=== PATIENT | male | born 1980 | race Caucasian/White ===

== ENCOUNTER 2024-01-23 10:59 | Emergency (ER) | payer MEDICAID ==
[~2024-01-23] VITALS: Ht 177.8 cm; Wt 117.0 kg
[2024-01-23] VITALS (8 sets, daily range): BP systolic 80–85; BP diastolic 68; PULSE 89–115; RESP 20–25; TEMP 98.7; O2SAT 48–81
[~2024-01-23 10:59] MED LIST: calcium chloride 100 MG/1 ML inj IV ONE
[2024-01-23] MEDS ORDERED: epiNEPHrine inj 5 MG in normal saline 250ml IV soln 245 ML IV PRN ×2 (11:20→11:21)
[2024-01-23] MEDS: ringers solution, lactated 1000ml IV soln IV ONE (11:25)
[2024-01-23 11:31] LABS: ABG BASE EXCESS -10.4 mmol/L (-2.0-2.0); ABG HCO3 19.7 mmol/L (22.0-26.0); ABG PCO2 (T) 64.9 mmHg (35.0-48.0); ABG PO2 (T) 65.1 mmHg (75.0-100.0); ALLEN'S TEST POSITIVE; FCOHb 0.1 % (0.0-3.9); FHHb 18.9 % (0.0-5.0); FMetHb 0.4 % (0.0-1.5); FO2Hb 80.6 % (94-97); MODE VENT - AC; PEEP 5 cm H2O; RESPIRATORY RATE 18 b/min; TIDAL VOLUME 500 mL; TOTAL HEMOGLOBIN 11.8 G/dl (14.0-17.9)
[2024-01-23 11:42] LABS: EOSINOPHILS # (AUTO) 0.1 X10'3 (0-0.9); HEMOGLOBIN 10.2 g/dl (14.0-17.9); MEAN PLATELET VOLUME 7.8 FL (7.4-10.4); WHITE BLOOD COUNT 9.5 X10'3 (4.5-11.0)
[2024-01-23 11:45] LABS: BASOPHILS # (AUTO) 0.1 X10'3 (0-0.2); BASOPHILS % (AUTO) 0.8 % (0-1); EOSINOPHILS % (AUTO) 0.9 % (0-6); HEMATOCRIT 32.6 % (42.0-52.0); LYMPHOCYTES % (AUTO) 21.6 % (21-51); MEAN CORPUSCULAR HEMOGLOBIN 27.7 PG (27.0-31.0); MEAN CORPUSCULAR HGB CONC 31.4 g/dL (33.0-36.5); MEAN CORPUSCULAR VOLUME 88.4 FL (78-98); MONOCYTES # (AUTO) 0.5 X10'3 (0-0.9); MONOCYTES % (AUTO) 5.7 % (2-12); NEUTROPHILS # (AUTO) 6.7 X10'3 (1.8-7.7); PLATELET COUNT 148 X10'3 (140-440); RED BLOOD COUNT 3.68 X10'6 (4.70-6.10); RED CELL DISTRIBUTION WIDTH 17.9 % (11.5-14.5)
[2024-01-23] MEDS: epiNEPHrine inj 5 MG in normal saline 250ml IV soln 245 ML IV SCH (11:57)
[2024-01-23 12:02] LABS: ALBUMIN 3.1 G/DL (3.4-5.0); ANION GAP 18 (8-16); BLOOD UREA NITROGEN 16 MG/DL (7-18); BUN/CREATININE RATIO 10.4 (10.0-20.0); CALCIUM 10.6 MG/DL (8.5-10.1); CHLORIDE 92 MMOL/L (99-107); CREATININE 1.54 MG/DL (0.60-1.10); GLUCOSE 117 MG/DL (70-104); PRO BRAIN NATRIURETIC PEPTIDE 6550 PG/ML (0-125); SODIUM 131 MMOL/L (135-145); TOTAL CARBON DIOXIDE 21.4 MMOL/L (24-32); eCRCL 65 ML/MIN; eGFR 50 ML/MIN
[2024-01-23 12:03] LABS: ANISOCYTOSIS 1+; NUCLEATED RED BLOOD CELLS 1 /100WBC (0-0); PLATELET ESTIMATE NORMAL; TOTAL CELLS COUNTED 100
[2024-01-23 12:04] LABS: ACANTHOCYTES FEW; BURR CELLS 1+; ELLIPTOCYTES FEW; LARGE PLATELETS FEW
[2024-01-23 12:09] LABS: POTASSIUM 3.7 MMOL/L (3.5-5.1)
[2024-01-23] MEDS ORDERED: propofol 1000mg/100ml bottle 100 ML IV SCH (13:30)
[2024-01-23] MEDS: propofol 1000mg/100ml bottle 100 ML IV SCH (14:12)
[2024-01-23 17:55] LABS: ABG BASE EXCESS -16.5 mmol/L (-2.0-2.0); ABG OXYGEN SATURATION 66.8 % (94-97); ABG PCO2 (T) 43.7 mmHg (35.0-48.0); ABG PH (T) 7.086 (7.340-7.440); ABG PO2 (T) 47.2 mmHg (75.0-100.0); FCOHb 0.4 % (0.0-3.9); FMetHb 0.3 % (0.0-1.5); FO2Hb 66.3 % (94-97); MODE VENT - PRVC; PATIENT TEMPERATURE 36.4; PEEP 10 cm H2O; RESPIRATORY RATE 22 b/min; TIDAL VOLUME 600 mL; TOTAL HEMOGLOBIN 12.3 G/dl (14.0-17.9)
[2024-01-23] MEDS: epiNEPHrine 10 MG in NS 250ml IV SOLUTION IV SCH (17:57)
[2024-01-23] MEDS: NORepinephrine 8mg/ 250ml NS 250 ML IV SCH (18:05)
[2024-01-23 19:18] LABS: BILIRUBIN,URINE NEGATIVE (Neg); CLARITY,URINE CLOUDY (Clear); COLOR,URINE YELLOW (Yellow); GLUCOSE, URINE NEGATIVE (Neg); KETONES,URINE NEGATIVE (Neg); LEUKOCYTE ESTERASE ,URINE NEGATIVE (Neg); NITRITES, URINE NEGATIVE (Neg); OCCULT BLOOD,URINE TRACE-INTACT (Neg); PROTEIN,URINE 100 mg/dl (Neg); UROBILINOGEN,URINE 0.2 E.U/dL (0.2-1.0)
[2024-01-23 19:23] LABS: UA COLLECTION TYPE FOLEY CATH
[2024-01-23 19:29] LABS: MUCUS STRANDS MANY /LPF (Neg); SPERM MANY /HPF (NEGATIVE); SQUAMOUS EPITHELIAL CELL,UR FEW /LPF (FEW)
[2024-01-23 19:32] LABS: BACTERIA,URINE 1+ /HPF (Neg); URINE AMPHETAMINE SCREEN POSITIVE (Neg); URINE BARBITUATE SCREEN NEGATIVE (Neg); URINE BENZODIAZEPINES SCREEN NEGATIVE (Neg); URINE CANNABINOID SCREEN POSITIVE (Neg); URINE COCAINE SCREEN NEGATIVE (Neg); URINE METHADONE SCREEN NEGATIVE (Neg); URINE OPIATE SCREEN NEGATIVE (Neg); URINE PHENCYCLIDINE SCREEN NEGATIVE (Neg)
[2024-01-23 21:55] LABS: ABG BASE EXCESS -25.3 mmol/L (-2.0-2.0); ABG HCO3 10.6 mmol/L (22.0-26.0); ABG OXYGEN SATURATION 41.9 % (94-97); ABG PCO2 (T) 79.2 mmHg (35.0-48.0); ABG PH (T) 6.739 (7.340-7.440); ABG PO2 (T) 43.7 mmHg (75.0-100.0); FCOHb 0.3 % (0.0-3.9); FHHb 57.8 % (0.0-5.0); FMetHb 0.3 % (0.0-1.5); FO2Hb 41.6 % (94-97); PATIENT TEMPERATURE 36.6; TOTAL HEMOGLOBIN 11.1 G/dl (14.0-17.9)
[2024-01-25 06:52] LABS: ISTAT CREATININE 1.9 mg/dL (0.8-1.3); ISTAT HGB 10.9 g/dl (14.0-17.9); ISTAT IONIZED CALCIUM 1.4 mmol/L (1.03-1.32); ISTAT K 5.8 mmol/L (3.5-5.1); POC BUN/CREATININE RATIO 13.2 (5.4-32.0)
== END 2024-01-24 07:17 ==
LOC: EDBD 11:00 → ER 11:00
DX: I46.9 Cardiac arrest, cause unspecified (principal); R07.89 Other chest pain; R40.4 Transient alteration of awareness
CPT/HCPCS: 36415; 36556; 36600; 70450; 71045; 80047; 80048; 80305; 81001; 82803; 82948; 83880; 84484; 85007; 85018; 85025; 87070; 92950; 93005; 94799; 96360; 99285; J0171; J2704; J3490; J7040; J7050; J7120; 94760; A6449; C1751; C1758